=== PATIENT | female | born 1970 | race Hispanic/Latino ===

== ENCOUNTER 2023-04-30 16:54 | Emergency (ER) | payer OTHER ==
[~2023-04-30] VITALS: Ht 157.5 cm; Wt 63.5 kg
[2023-04-30 19:55] LABS: BASOPHILS # (AUTO) 0.03 K/uL (0.00-0.20); BASOPHILS % (AUTO) 0.3 % (0.0-5.0); EOSINOPHILS # (AUTO) 0.36 K/uL (0.00-0.70); HEMATOCRIT 38.3 % (36-48); IMMATURE GRANULOCYTE ABSOLUTE 0.04 K/uL (0-1); LYMPHOCYTES # (AUTO) 3.4 K/uL (1.0-4.8); LYMPHOCYTES % (AUTO) 38.1 % (21.0-51.0); MEAN CORPUSCULAR HEMOGLOBIN 25.4 pg (27.0-33.0); MEAN CORPUSCULAR HGB CONC 31.6 g/dL (32.0-36.0); MEAN CORPUSCULAR VOLUME 80.3 fL (79-99); MONOCYTES # (AUTO) 0.5 K/uL (0.1-1.0); MONOCYTES % (AUTO) 5.2 % (3.0-13.0); NEUTROPHILS # (AUTO) 4.7 K/uL (1.8-7.7); PLATELET COUNT (AUTO) 405 K/uL (130-400); RED BLOOD CELL COUNT(AUTO) 4.77 MIL/uL (4.00-5.50)
[2023-04-30] MEDS ORDERED: ACETAMINOPHEN 500 MG TABLET PO ONE (20:00)
[2023-04-30 20:06] LABS: CREATININE 0.7 mg/dL (0.5-1.5); POTASSIUM 3.8 mmol/L (3.5-5.1)
[2023-04-30 20:10] LABS: ALBUMIN 3.7 g/dL (3.5-5.0); BILIRUBIN,TOTAL 0.3 mg/dL (0.2-1.0); TOTAL PROTEIN, SERUM 8.3 g/dL (6.0-8.3)
[2023-04-30 20:30] VITALS: BP 164/88; PULSE 61; RESP 18; O2SAT 98
[2023-04-30 20:36] LABS: SARS-CoV-2, RNA, NAAT NEGATIVE SARS CoV-2 (NEGATIVE)
[2023-04-30 20:41] LABS: INFLUENZA TYPE A Negative For Type A (NEGATIVE); INFLUENZA TYPE B Negative For Type B (NEGATIVE)
[2023-04-30] MEDS ORDERED: IBUP-2077 PO (22:05)
[2023-04-30] MEDS ORDERED: BENZ-39 PO (22:05)
== END 2023-04-30 22:23 | disposition home or self-care (01) ==
LOC: EDH 16:54
DX: S22.32XA Fracture of one rib, left side, initial encounter for closed fracture (principal); I10 Essential (primary) hypertension; Z79.899 Other long term (current) drug therapy; Z20.822 Contact with and (suspected) exposure to COVID-19; X58.XXXA Exposure to other specified factors, initial encounter; Y93.89 Activity, other specified; Y92.89 Other specified places as the place of occurrence of the external cause; Y99.8 Other external cause status
CPT/HCPCS: 99285; 71045; 87635; 84484; 80053; 85025; 87804 ×2; 36415; 93005; C9803

== ENCOUNTER 2024-11-10 17:01 | Emergency (ER) | payer OTHER, SELFPAY ==
[~2024-11-10] VITALS: Ht 154.9 cm; Wt 65.8 kg
[~2024-11-10 17:01] MED LIST: BENZ-39 PO; IBUP-2077 PO
[2024-11-10 17:41] VITALS: BP 145/86; PULSE 78; RESP 19; TEMP 97.9; O2SAT 99
[2024-11-10] MEDS: ketOROlac 15MG/ML VIAL (15MG/ML) IM STA (17:57)
[2024-11-10] MEDS: ORPHENADRINE 60MG/2ML IM STA (17:57)
--- NOTE | 2024-11-10 18:30 | NUR ---
MEDIUM SLING PLACED TO THE RIGHT ARM. PT TOLERATED WELL.
--- NOTE | 2024-11-10 18:35 | HMCIMG ---
ELBOW 2VWS RT HISTORY: Pain COMPARISON: None TECHNIQUE: 2 images of the right elbow were obtained. FINDINGS: There is no acute displaced fracture or dislocation. Degenerative changes are seen. IMPRESSION: 1. Findings as described above.
[2024-11-10] MEDS ORDERED: LIDO1ADH82 TP (18:48)
[2024-11-10] MEDS ORDERED: KETO10TA2 PO (18:48)
--- NOTE | 2024-11-10 18:50 | ERN ---
ED Note History of Present Illness Stated Complaint: ARM PAIN Chief Complaint: Upper Extremity Pain/Injury Time Seen by MD: 17:23 Time Seen by Midlevel: 17:30 Dictation: 53-year-old female coming in with complaints of right shoulder and elbow pain for the last seven months. Patient states she has been seen by her PCP told her it was arthritis and was told to do some stretching exercises. Patient states she wakes up with no pain and throughout the day as she uses that arm it begins to hurt. Denies any trauma Allergies: Coded Allergies: No Known Allergies (Unverified Allergy, Unknown, 04/30/23) Home Meds Active Scripts Benzonatate (Tessalon Perles) 100 Mg Cap, 100 MG PO TID, #30 CAP Prov:LILIANA ESTRELLA PAC 04/30/23 Ibuprofen (Ibuprofen 800 mg Tab) 800 Mg Tab, 800 MG PO TID PRN for PAIN, #30 TAB Prov:LILIANA ESTRELLA PAC 04/30/23 Past Medical History Past Medical History: Hypertension Surgical History: None Review of System Dictation Constitutional: Negative for fever,chills, and weight loss Eyes: Negative for injury, pain,redness, and discharge ENT: Negative for injury,pain or swelling Cardiovascular: Negative for chest pain, palpitations, and edema Respiratory: Negative for shortness of breath, cough, and wheezing, Abdomen/GI: Negative for abdominal pain, nausea, vomiting, diarrhea, and constipation Back: Negative for injury and pain : Negative for injury, bleeding and discharge MS/Extremity: Negative for injury and deformity, complaining of pain to posterior shoulder along the trapezoid area and her elbow, no trauma Skin: Negative for rash, and discoloration Neuro: Negative for headache, weakness, numbness, tingling, and seizure Psych: Negative for suicide ideation, homicidal ideation, and hallucinations Initial Vital Sign VS Vital Signs Date Time Temp Pulse Resp B/P (MAP) Pulse Ox O2 Delivery O2 Flow Rate FiO2 11/10/24 17:22 98.1 69 20 143/97 98 Room Air 11/10/24 17:41 0 21 Physical Exam Dictation General: awake, alert, NAD Head/Face: Normocephalic, atraumatic Eyes: PERRL, EOMI, vision at baseline ENT: oral cavity clear, TMs clear, no signs of infection Neck: Trachea midline, supple, no nuchal rigidity Cardiovascular: RRR, normal S1/S2, No MRGs, no JVD Respiratory: CTAB, no respiratory distress, No rales or wheezes Abdomen: Soft, non-tender, non-distended, normal bowel sounds, no guarding or rebound. Skin: Warm, dry, normal turgor, no rash MS/Extremity: Pulses equal, no cyanosis, neurovascular intact, FROM, pain on palpation went to palpate her trapezius area and the AC area. This could be consistent with lateral epicondylitis from overuse Neuro: COAx4, GCS 15, strength 5/5, CN 2-12 intact, normal cerebellar exam, normal gait, Psych: Normal behavior, mood, and affect normal Results (Laboratory/Radiology) Labs Reviewed?: Yes X-RAY Comment: [place] [id number] [address] IMAGING REPORT Signed PATIENT: ANIL MELTON MR#: [id number] : 1970 SEX: F AGE: 53 LOCATION: [facility] ORDER 28 STATUS: REG ER REPORT#: [id number] SERVICE 24 REASON: pain ORDERING PHYSICIAN: AUGUSTA SAENZ NP PROCEDURE: [id number] - ELBOW 2VWS RT ELBOW 2VWS RT HISTORY: Pain COMPARISON: None TECHNIQUE: 2 images of the right elbow were obtained. FINDINGS: There is no acute displaced fracture or dislocation. Degenerative changes are seen. IMPRESSION: 1. Findings as described above. DICTATED BY: JADYN ANN MD DATE: 11/10/241831 ELECTRONICALLY SIGNED BY: JADYN ANN MD DATE: 11/10/241834 ED Course ED Course Orders Procedure Category Date Status Time Orphenadrine Citrate PHA 11/10/24 Complete (Norflex) 17:25 Ketorolac PHA 11/10/24 Complete Tromethamine 15mg/Ml 17:25 Elbow 2vws Rt RAD 11/10/24 Resulted 17:25 Sling ADENIKE 11/10/24 In Process 17:25 Current Medications Medications (Trade) Dose Ordered Sig/Guzman Route PRN Reason Start Time Stop Time Status Last Admin Dose Admin Ketorolac Tromethamine (toRADol) 15 mg ONCE STAT IM 11/10/24 17:25 11/10/24 17:40 DC 11/10/24 17:57 Orphenadrine Citrate (Norflex) 60 mg ONCE STAT IM 11/10/24 17:25 11/10/24 17:40 DC 11/10/24 17:57 Vital Signs Date Time Temp Pulse Resp B/P (MAP) Pulse Ox O2 Delivery O2 Flow Rate FiO2 11/10/24 17:41 97.9 78 19 145/86 99 Room Air* 0 21 11/10/24 17:22 98.1 69 20 143/97 98 Room Air Medical Decision Making MDM MDM:53-year-old female coming in with complaints of right shoulder and elbow pain for the last seven months. Patient states she has been seen by her PCP told her it was arthritis and was told to do some stretching exercises. Patient states she wakes up with no pain and throughout the day as she uses that arm it begins to hurt. Denies any trauma X-ray shows no acute finding. Discussed with the patient to rest the elbow for the next couple of days to help with the inflammation and take vxfi-mii-xmoopci medications like Tylenol and ibuprofen. Educated to follow up with the PCP in 1-2 days. Differential diagnosis: Arthritis, tendinitis, bursitis, lateral epicondylitis Rationale: Tests considered and ordered secondary to shared decision making include: Previous outside records reviewed: Old ER visits. Risk of complication and/or morbidity or mortality of patient management: None Medications-Per medication reconciliation Need for hospitalization: Patient does not meet criteria for hospitalization. Need for emergency major/minor surgery: No There are no social concerns with this patient. Prescription drug management Prescriptions will include symptomatic care Patient's prior external medical records from other ER visits were reviewed by me as indicated. Prior testing and results from previous visits were reviewed. Prior tests were taken into account with medical decision making and resource utilization, independent historian/historians were used to obtain complete medical history. I independently interpreted the test that were performed, results were reviewed by me and considered findings on radiology if ordered. Medical management and examination interpretation discussions were had by me with other qualified healthcare professionals as indicated for the patient's care. And DX & DISP Disposition: Discharge Departure Impression: Primary Impression: Muscle spasm Additional Impression: Elbow pain, right Condition: Stable Scripts Ketorolac Tromethamine (Ketorolac Tromethamine) 10 Mg Tablet 1 TAB PO Q6HPRN PRN for pain for 5 Days, #20 TAB 0 Refills Prov: AUGUSTA SAENZ NP 11/10/24 Lidocaine (Lidocaine) 4 % Adh..patch 1 PATCH TP DAILY for 10 Days, #10 PATCH 0 Refills Prov: AUGUSTA SAENZ NP 11/10/24 Additional Instructions: Follow up with PCp. in 1-2 days. Referrals: ERICK EAGLE PA-C (PCP) Time of Disposition: 18:48 I have reviewed the case, and I agree with, Diagnosis and Plan AUGUSTA SAENZ NP Nov 10, 2024 18:50
== END 2024-11-10 19:00 | disposition home or self-care (01) ==
LOC: EDH 17:01
DX: M25.521 Pain in right elbow (principal); M62.838 Other muscle spasm; I10 Essential (primary) hypertension; Z79.899 Other long term (current) drug therapy
CPT/HCPCS: 99284; 73070; 96372 ×2; J1885; J2360

== ENCOUNTER → 2025-01-11 | Outpatient (CLI) | payer MEDICAID ==
[~2025-01-11] MED LIST changes: +KETO10TA2 PO; +LIDO1ADH82 TP
--- NOTE | 2025-01-11 11:39 | HMCIMG ---
BILATERAL BREAST ULTRASOUND: Clinical history follow-up for abnormal mammogram Findings: Real-time examination of the both breasts demonstrates ifwv-se-ozgbbayy heterogeneous. echotexture throughout both the breasts without evidence of focal solid or cystic masses. There is bilateral benign appearing axillary lymph node on the right it measures 2.5 x 0.7 x 1.7 cm. Second lymph node measuring 1.9 x 0.9 x 2.2 cm. On the left side axillary region there is a lymph node measuring 1.0 x 0.8 cm the second lymph node measures 0.7 x 0.8 cm. IMPRESSION: No mass or cyst seen I would recommend annual mammography with tomography CATEGORY 2: BENIGN FINDINGS Recommend monthly self breast exam as well as annual clinical examination. A negative x-ray should not delay biopsy if a dominant or clinically suspicious mass is present, since 8-10% of cancers are not identified by mammography. Dense breasts particularly, may obscure an underlying neoplasm. Some of these may be detected clinically and therefore, clinical examination is an essential part of breast evaluation.
--- NOTE | 2025-01-11 11:41 | HMCIMG ---
DIGITAL bilateral breast DIAGNOSTIC MAMMOGRAM WITH TOMOSYNTHESIS, DATED 01/11/2025 1:00 AM CDT Technique: The digital mammographic examination of both breasts in craniocaudal and mediolateral oblique views along with CAD was obtained. Tomosynthesis of both breasts was obtained. History: This is a 54 years year-old female 4, para 4 Ab 0 for 3D Diagnostic mammogram. Patient has no family history of breast cancer. Patient is here for follow-up for mammogram from December 16, 2024 Reference:Mammogram from 12/14/2024 is available.. Breast composition: Breast composition C: The breasts are heterogeneously dense, which may obscure small masses. Finding: The digital mammographic examination of both breasts in craniocaudal and mediolateral oblique view along with CAD demonstrates to be moderately heterogeneously dense breasts. Ultrasound demonstrate no lesion seen.. There is no evidence of any dendritic mass, cluster microcalcification or architectural distortion. The Tomosynthesis demonstrates no lesion seen. The retromammary fat appears to be normal. IMPRESSION: Unchanged from prior mammography. NO RADIOGRAPHIC EVIDENCE OF MALIGNANT CHANGES. WE WOULD RECOMMEND ANNUAL FOLLOW UP WITH TOMOSYNTHESIS UNLESS OTHERWISE CLINICALLY INDICATED. FINAL ASSESSMENT: ACR: BI-RAD- 2. Benign: Also a negative assessment; finding(s) benign abnormalities. Management: Routine mammography screening. Likelihood of Cancer: Essentially 0% likelihood of malignancy. NOTE: IF A WORK-UP OF THIS PATIENT LEADS TO A BIOPSY, PLEASE FORWARD A COPY OF THE PATHOLOGY REPORT TO OUR OFFICE REQUIRED BY SA [employer] MARCH 02, 1994. A NEGATIVE MAMMOGRAM SHOULD NOT PRECLUDE BIOPSY OF A CLINICALLY PALPABLE SUSPICIOUS MASS, 10% OF BREAST CANCERS ARE MAMMOGRAPHICALLY OCCULT. THIS MAMMOGRAPHY FACILITY IS FULLY ACCREDITED BY THE FOOD AND DRUG [employer]ISTRATION (FDA). THANK YOU FOR THIS REFERRAL.
== END | disposition home or self-care (01) ==
LOC: RAH 09:24
PROVIDERS: ATTEND Family Medicine
DX: N64.89 Other specified disorders of breast (principal); R92.333 Mammographic heterogeneous density, bilateral breasts; R92.8 Other abnormal and inconclusive findings on diagnostic imaging of breast; R59.0 Localized enlarged lymph nodes
CPT/HCPCS: 77062; 77066